=== PATIENT | male | born 1995 | race Caucasian/White ===

== ENCOUNTER 2016-09-20 15:02 | Emergency (ER) | payer OTHER | END 2016-09-20 15:40 | disposition home or self-care (01) | LOC: ER1 15:02 | DX: J30.2 Other seasonal allergic rhinitis (principal); Z88.2 Allergy status to sulfonamides; Z88.1 Allergy status to other antibiotic agents | CPT/HCPCS: 99283 ==

== ENCOUNTER → 2016-10-18 | Outpatient (CLI) | payer OTHER | LOC: LAB 09:42 | DX: Z20.5 Contact with and (suspected) exposure to viral hepatitis (principal) | CPT/HCPCS: 36415; 86701; 86702; 86803 ==